=== PATIENT | male | born 1950 | race Caucasian/White ===

== ENCOUNTER 2017-07-11 10:30 | Emergency (ER) | payer OTHER ==
[~2017-07-11] VITALS: Ht 182.9 cm; Wt 95.3 kg
== END 2017-07-11 14:27 | disposition home or self-care (01) ==
LOC: ER 10:30
DX: S80.812A Abrasion, left lower leg, initial encounter (principal); S60.512A Abrasion of left hand, initial encounter; W18.39XA Other fall on same level, initial encounter; Y93.89 Activity, other specified; Y92.832 Beach as the place of occurrence of the external cause; Y99.8 Other external cause status